=== PATIENT | female | born 1960 | race African-American/Black ===

== ENCOUNTER 2018-02-06 16:51 | Inpatient (IN) | payer MEDICARE, MEDICAID ==
[~2018-02-06] VITALS: Ht 172.7 cm; Wt 108.0 kg
[2018-02-06] MEDS ORDERED: SODIUM CHLORIDE 0.9% 1,000 ML IV ONE (17:23)
[2018-02-06] MEDS ORDERED: LORAZEPAM 2MG/ML CPJ IV ONE ×2 (17:30→18:30)
[2018-02-06] MEDS ORDERED: LEVETIRACETAM 500MG PREMIX 100 ML IV ONE (17:30)
[2018-02-06 18:24] LABS: BASOPHILS % 1.4 % (0.0-2.0); HEMATOCRIT. 38.3 % (36.0-48.0); HEMOGLOBIN. 12.6 g/dL (12.0-16.0); LYMPHOCYTES % 34.1 % (20.0-50.0); MEAN CORPUSCULAR VOLUME 79.1 fL (81.0-99.0); MEAN PLATELET VOLUME 9.3 fl (7.4-10.4); NEUTROPHILS % 54.5 % (40.0-76.0); PLATELET 164 x1000/uL (130-400); RED BLOOD CELL COUNT 4.85 mill/uL (4.2-5.4)
[2018-02-06 18:28] LABS: CHLORIDE 109 mEq/L (98-107); INR 1.1; PROTHROMBIN TIME 11.3 sec (9.1-11.1)
[2018-02-06 18:32] LABS: ETHANOL BLOOD < 10 mg/dL
[2018-02-06 18:36] LABS: CREATINE KINASE 113 IU/L (26-192)
[2018-02-06 18:39] LABS: PHENOBARBITAL < 2.1 ug/mL (15.0-40.0)
[2018-02-06 18:47] LABS: CARBAMAZEPINE < 0.5 ug/mL (4-12); VALPROIC ACID < 3.0 ug/mL (50-100)
[2018-02-06 19:25] LABS: CLARITY URINE CLEAR (CLEAR); COLOR URINE YELLOW (YELLOW); KETONES URINE NEGATIVE (NEGATIVE); LEUKOCYTE ESTERASE URINE NEGATIVE (NEGATIVE); NITRITE URINE NEGATIVE (NEGATIVE); OCCULT BLOOD URINE NEGATIVE (NEGATIVE); PH URINE 5.5 (4.5-8.0); PROTEIN URINE NEGATIVE (NEGATIVE); UROBILINOGEN URINE 0.2 E.U./dL (0.2-1.0)
[2018-02-06 19:53] LABS: *AMPHETAMINES SCREEN URINE NEGATIVE (NEGATIVE)
[2018-02-06 19:54] LABS: *BARBITURATES SCREEN URINE NEGATIVE (NEGATIVE); *BENZODIAZEPINES SCREEN URINE PRESUMTIVE POSITIVE (NEGATIVE); *COCAINE SCREEN URINE NEGATIVE (NEGATIVE); METHADONE URINE SCREEN NEGATIVE (NEGATIVE); OPIATES URINE SCREEN NEGATIVE (NEGATIVE); PHENCYCLIDINE URINE SCREEN NEGATIVE (NEGATIVE)
[2018-02-06 19:55] LABS: CANNABINOID URINE SCREEN NEGATIVE (NEGATIVE)
[2018-02-06 22:30] VITALS: BP 144/90
[2018-02-07] VITALS (8 sets, daily range): BP systolic 96–136; BP diastolic 66–86
[2018-02-07] MEDS ORDERED: ONDANSETRON HCL 4MG/2ML INJ IV PRN
[2018-02-07] MEDS ORDERED: IPRATROPIUM/ALBUTEROL 0.5-3(2.5)MG/3ML NEB HHN PRN
[2018-02-07] MEDS ORDERED: CLONIDINE 0.1MG TABLET PO PRN
[2018-02-07] MEDS ORDERED: LORAZEPAM 2MG/ML CPJ IV PRN
[2018-02-07] MEDS ORDERED: SIMV10TA6 PO (00:18)
[2018-02-07] MEDS ORDERED: BACL-141 PO (00:18)
[2018-02-07] MEDS ORDERED: GABA-290 PO (00:18)
[2018-02-07] MEDS ORDERED: MEMA10TA19 PO (00:18)
[2018-02-07] MEDS ORDERED: BUSP15TA3 PO (00:18)
[2018-02-07] MEDS ORDERED: LORA10TA7 PO (00:18)
[2018-02-07] MEDS ORDERED: ASPI-1159 PO (00:18)
[2018-02-07] MEDS ORDERED: BENA10TA10 PO (00:18)
[2018-02-07] MEDS ORDERED: KEPP500 PO (00:18)
[2018-02-07] MEDS ORDERED: NITR100C PO (00:20)
[2018-02-07 06:46] LABS: BASOPHILS % 1.1 % (0.0-2.0); EOSINOPHILS % 3.4 % (0.0-5.0); HEMATOCRIT. 39.4 % (36.0-48.0); HEMOGLOBIN. 12.9 g/dL (12.0-16.0); LYMPHOCYTES % 30.5 % (20.0-50.0); MEAN CORPUSCULAR HEMOGLOBIN 25.9 pg (28.0-32.0); MEAN CORPUSCULAR VOLUME 78.9 fL (81.0-99.0); MEAN PLATELET VOLUME 9.3 fl (7.4-10.4); MONOCYTES % 6.4 % (2.0-8.0); NEUTROPHILS % 58.6 % (40.0-76.0); PLATELET 172 x1000/uL (130-400); RED BLOOD CELL COUNT 4.99 mill/uL (4.2-5.4); RED CELL DISTRIBUTION WIDTH 15.8 % (11.6-14.6)
[2018-02-07 07:04] LABS: T4 FREE 0.88 ng/dL (0.76-1.46)
[2018-02-07] MEDS: HYDROCODONE/ACETAMINOPHEN 5/325MG TABLET PO PRN (07:26)
[2018-02-07] MEDS: LORATADINE 10MG TABLET PO SCH (08:40)
[2018-02-07] MEDS: GABAPENTIN 300MG CAPSULE PO SCH ×2 (08:40→17:22)
[2018-02-07] MEDS: BENAZEPRIL 10MG TABLET PO SCH (08:40)
[2018-02-07] MEDS: MEMANTINE HCL 10MG TABLET PO SCH (08:40)
[2018-02-07] MEDS: ASPIRIN 81MG TABLET PO SCH (08:41)
[2018-02-07] MEDS: BUSPIRONE HCL 10MG TABLET PO SCH ×2 (08:41→13:48)
[2018-02-07] MEDS ORDERED: MEDICATION NOT ON FORMULARY EA (Aspirin (Aspirin Low Dose) 1 TAB) PO SCH (09:00)
[2018-02-07] MEDS ORDERED: MEDICATION NOT ON FORMULARY EA (Gabapentin 1 TAB) PO SCH (09:00)
[2018-02-07] MEDS ORDERED: LEVETIRACETAM 500MG TABLET PO SCH ×2 (09:00→21:00)
[2018-02-07] MEDS ORDERED: MEDICATION NOT ON FORMULARY EA (Simvastatin 1 TAB) PO SCH (09:00)
[2018-02-07] MEDS ORDERED: BUSPIRONE HCL PO SCH (09:00)
[2018-02-07] MEDS: LORAZEPAM 2MG/ML CPJ IV PRN ×2 (12:37→22:40)
[2018-02-07 13:14] LABS: CHLORIDE 106 mEq/L (98-107)
[2018-02-07 13:46] LABS: VITAMIN B12 SERUM 667 pg/mL (211-911)
[2018-02-07] MEDS: PHENYTOIN SODIUM 100MG/2ML VIAL IV SCH ×2 (14:00→22:40)
[2018-02-07 14:37] LABS: BG BASE EXCESS 3.1 mmol/L (-2.0-2.0); BG CARBOXYHEMOGLOBIN 0.7 % (0.5-1.5); BG DEOXYHEMOGLOBIN 3.6 % (0.0-5.0); BG FRACTION INSPIRED OXYGEN 21; BG HCO3 ACT 28.1 mmol/L (22.0-26.0); BG METHEMOGLOBIN 0.3 % (0.0-1.5); BG OXYGEN SATURATION 96.4 % (92.0-98.5); BG OXYHEMOGLOBIN 95.4 % (94.0-97.0); BG PCO2 44.8 mmHg (35.0-45.0); BG PH 7.416 (7.350-7.450); BG PO2 83.3 mmHg (75.0-100.0); BG SAMPLE SITE LEFT BRACHIAL; BG TOTAL HEMOGLOBIN 13.2 g/dL (12.0-18.0); BG VENT MODE ROOM AIR
[2018-02-07] MEDS ORDERED: LAMOTRIGINE 25MG TABLET PO SCH (15:00)
[2018-02-07 15:17] LABS: HEMATOCRIT 38.7 % (36.0-48.0); HEMOGLOBIN 12.6 g/dL (12.0-16.0); MEAN CORPUSCULAR HEMOGLOBIN 25.7 pg (28.0-32.0); MEAN CORPUSCULAR VOLUME 78.8 fL (81.0-99.0); PLATELET 166 x1000/uL (130-400); RED BLOOD CELL COUNT 4.92 mill/uL (4.2-5.4)
[2018-02-07] MEDS: LAMOTRIGINE 25MG TABLET PO SCH (17:21)
[2018-02-07] MEDS: BUSPIRONE HCL 5MG TABLET PO SCH (17:21)
[2018-02-07] MEDS ORDERED: LEVETIRACETAM 500 MG in SODIUM CHLORIDE 0.9% 100 ML IV SCH (21:00)
[2018-02-07] MEDS: ACETAMINOPHEN 325MG TABLET PO PRN (21:19)
[2018-02-07] MEDS: LEVETIRACETAM 500MG in SODIUM CHLORIDE 0.9% 100ML IV SCH (21:20)
[2018-02-07] MEDS: BACLOFEN 10MG TABLET PO SCH (21:20)
[2018-02-07] MEDS: ATORVASTATIN CALCIUM 10MG TABLET PO SCH (21:20)
[2018-02-08] VITALS (31 sets, daily range): BP systolic 90–127; BP diastolic 58–81
[2018-02-08] MEDS: HYDROCODONE/ACETAMINOPHEN 5/325MG TABLET PO PRN ×2 (03:52→09:32)
[2018-02-08] MEDS: PHENYTOIN SODIUM 100MG/2ML VIAL IV SCH ×2 (05:25→14:09)
[2018-02-08 05:43] LABS: HEMOGLOBIN 12.5 g/dL (12.0-16.0); MEAN CORPUSCULAR HEMOGLOBIN 26.2 pg (28.0-32.0); MEAN CORPUSCULAR VOLUME 79.5 fL (81.0-99.0); PLATELET 161 x1000/uL (130-400); RED BLOOD CELL COUNT 4.78 mill/uL (4.2-5.4)
[2018-02-08] MEDS: ACETAMINOPHEN 325MG TABLET PO PRN (07:21)
[2018-02-08] MEDS: LORAZEPAM 2MG/ML CPJ IV PRN ×3 (07:27→19:44)
[2018-02-08] MEDS ORDERED: LIDOCAINE HCL 1% 20ML VIAL (Pyxis) INJ ONE (07:48)
[2018-02-08] MEDS: ASPIRIN 81MG TABLET PO SCH ×2 (09:26→14:10)
[2018-02-08] MEDS: GABAPENTIN 300MG CAPSULE PO SCH ×2 (09:26→16:46)
[2018-02-08] MEDS: LORATADINE 10MG TABLET PO SCH (09:26)
[2018-02-08] MEDS: MEMANTINE HCL 10MG TABLET PO SCH (09:26)
[2018-02-08] MEDS: LEVETIRACETAM 500MG in SODIUM CHLORIDE 0.9% 100ML IV SCH (09:27)
[2018-02-08] MEDS: BENAZEPRIL 10MG TABLET PO SCH ×2 (09:29→09:30)
[2018-02-08] MEDS: BUSPIRONE HCL 5MG TABLET PO SCH ×3 (10:54→16:50)
[2018-02-08] MEDS: LAMOTRIGINE 25MG TABLET PO SCH (10:54)
[2018-02-08] MEDS ORDERED: PHENYTOIN SODIUM 500 MG in SODIUM CHLORIDE 0.9% 50 ML IV SCH (11:45)
[2018-02-08 12:43] LABS: CHLORIDE 106 mEq/L (98-107)
[2018-02-08] MEDS: ENOXAPARIN 30MG/0.3ML SYR SUBCUT SCH (14:11)
[2018-02-08] MEDS: LEVETIRACETAM 250MG TABLET PO SCH (20:49)
[2018-02-08] MEDS: ATORVASTATIN CALCIUM 10MG TABLET PO SCH (20:49)
[2018-02-08] MEDS: BACLOFEN 10MG TABLET PO SCH (20:49)
[2018-02-08] MEDS: PHENYTOIN SODIUM EXTENDED 100MG CAPSULE PO SCH (23:16)
[2018-02-09] VITALS (12 sets, daily range): BP systolic 104–150; BP diastolic 63–90
[2018-02-09] MEDS: LORAZEPAM 2MG/ML CPJ IV PRN ×2 (03:11→07:48)
[2018-02-09] MEDS: PHENYTOIN SODIUM EXTENDED 100MG CAPSULE PO SCH ×3 (06:41→21:12)
[2018-02-09] MEDS: ENOXAPARIN 30MG/0.3ML SYR SUBCUT SCH ×2 (06:41→17:20)
[2018-02-09 07:07] LABS: HEMATOCRIT 35.7 % (36.0-48.0); HEMOGLOBIN 11.8 g/dL (12.0-16.0); MEAN CORPUSCULAR HEMOGLOBIN 25.8 pg (28.0-32.0); MEAN CORPUSCULAR VOLUME 78.2 fL (81.0-99.0); PLATELET 158 x1000/uL (130-400); RED BLOOD CELL COUNT 4.57 mill/uL (4.2-5.4); RED CELL DISTRIBUTION WIDTH 15.9 % (11.6-14.6)
[2018-02-09] MEDS: BENAZEPRIL 10MG TABLET PO SCH (09:00)
[2018-02-09] MEDS: BUSPIRONE HCL 5MG TABLET PO SCH ×3 (09:04→17:19)
[2018-02-09] MEDS: LORATADINE 10MG TABLET PO SCH (09:04)
[2018-02-09] MEDS: ASPIRIN 81MG TABLET PO SCH (09:04)
[2018-02-09] MEDS: MEMANTINE HCL 10MG TABLET PO SCH (09:04)
[2018-02-09] MEDS: LAMOTRIGINE 25MG TABLET PO SCH (09:04)
[2018-02-09] MEDS: LEVETIRACETAM 250MG TABLET PO SCH ×2 (09:05→20:39)
[2018-02-09] MEDS: GABAPENTIN 300MG CAPSULE PO SCH ×2 (09:07→17:20)
[2018-02-09] MEDS: AMLODIPINE 2.5MG TABLET PO SCH ×2 (12:30→20:47)
[2018-02-09] MEDS: ATORVASTATIN CALCIUM 10MG TABLET PO SCH (20:39)
[2018-02-09] MEDS: BACLOFEN 10MG TABLET PO SCH (20:40)
[2018-02-09] MEDS: HYDROCODONE/ACETAMINOPHEN 5/325MG TABLET PO PRN (21:13)
[2018-02-10] VITALS (19 sets, daily range): BP systolic 100–119; BP diastolic 65–77
[2018-02-10] MEDS: ACETAMINOPHEN 325MG TABLET PO PRN (01:38)
[2018-02-10] MEDS: PHENYTOIN SODIUM EXTENDED 100MG CAPSULE PO SCH ×3 (05:15→20:37)
[2018-02-10] MEDS: HYDROCODONE/ACETAMINOPHEN 5/325MG TABLET PO PRN ×2 (05:17→23:47)
[2018-02-10] MEDS: ENOXAPARIN 30MG/0.3ML SYR SUBCUT SCH ×2 (05:18→17:50)
[2018-02-10] MEDS ORDERED: DOCUSATE SODIUM 100MG CAPSULE PO SCH (09:45)
[2018-02-10] MEDS: LORATADINE 10MG TABLET PO SCH (09:52)
[2018-02-10] MEDS: LEVETIRACETAM 250MG TABLET PO SCH ×2 (09:52→20:36)
[2018-02-10] MEDS: GABAPENTIN 300MG CAPSULE PO SCH ×2 (09:52→17:44)
[2018-02-10] MEDS: BENAZEPRIL 10MG TABLET PO SCH (09:52)
[2018-02-10] MEDS: ASPIRIN 81MG TABLET PO SCH (09:52)
[2018-02-10] MEDS: AMLODIPINE 2.5MG TABLET PO SCH ×2 (09:53→20:37)
[2018-02-10] MEDS: MEMANTINE HCL 10MG TABLET PO SCH (09:53)
[2018-02-10] MEDS: LAMOTRIGINE 25MG TABLET PO SCH ×2 (10:03→17:44)
[2018-02-10] MEDS: BUSPIRONE HCL 5MG TABLET PO SCH ×3 (10:03→17:44)
[2018-02-10 11:08] LABS: HEMATOCRIT 36.7 % (36.0-48.0); HEMOGLOBIN 12.1 g/dL (12.0-16.0); MEAN CORPUSCULAR HEMOGLOBIN 26.2 pg (28.0-32.0); MEAN CORPUSCULAR VOLUME 79.3 fL (81.0-99.0); PLATELET 164 x1000/uL (130-400); RED BLOOD CELL COUNT 4.63 mill/uL (4.2-5.4); RED CELL DISTRIBUTION WIDTH 15.8 % (11.6-14.6)
[2018-02-10] MEDS ORDERED: LACTULOSE 20G/30ML UDC PO NR (17:00)
[2018-02-10] MEDS: DOCUSATE SODIUM 100MG CAPSULE PO SCH (17:44)
[2018-02-10] MEDS: BACLOFEN 10MG TABLET PO SCH (20:36)
[2018-02-10] MEDS: ATORVASTATIN CALCIUM 10MG TABLET PO SCH (20:36)
[2018-02-11] VITALS (17 sets, daily range): BP systolic 94–130; BP diastolic 59–87
[2018-02-11] MEDS: ENOXAPARIN 30MG/0.3ML SYR SUBCUT SCH ×2 (06:05→18:36)
[2018-02-11] MEDS: PHENYTOIN SODIUM EXTENDED 100MG CAPSULE PO SCH ×3 (06:05→20:52)
[2018-02-11] MEDS: HYDROCODONE/ACETAMINOPHEN 5/325MG TABLET PO PRN (06:11)
[2018-02-11] MEDS: DOCUSATE SODIUM 100MG CAPSULE PO SCH ×2 (08:23→16:13)
[2018-02-11] MEDS: GABAPENTIN 300MG CAPSULE PO SCH ×2 (08:23→16:13)
[2018-02-11] MEDS: BENAZEPRIL 10MG TABLET PO SCH (08:23)
[2018-02-11] MEDS: ASPIRIN 81MG TABLET PO SCH (08:23)
[2018-02-11] MEDS: BUSPIRONE HCL 5MG TABLET PO SCH ×3 (08:23→16:19)
[2018-02-11] MEDS: LAMOTRIGINE 25MG TABLET PO SCH ×2 (08:24→16:19)
[2018-02-11] MEDS: LORATADINE 10MG TABLET PO SCH (08:33)
[2018-02-11] MEDS: LEVETIRACETAM 250MG TABLET PO SCH ×2 (08:33→20:52)
[2018-02-11] MEDS: MEMANTINE HCL 10MG TABLET PO SCH (08:33)
[2018-02-11] MEDS: AMLODIPINE 2.5MG TABLET PO SCH ×2 (08:34→20:53)
[2018-02-11] MEDS: DIPHENHYDRAMINE 50MG/ML VIAL IV PRN ×3 (08:35→21:42)
[2018-02-11 13:23] LABS: HEMATOCRIT 36.4 % (36.0-48.0); PLATELET 159 x1000/uL (130-400); RED BLOOD CELL COUNT 4.61 mill/uL (4.2-5.4); RED CELL DISTRIBUTION WIDTH 15.6 % (11.6-14.6)
[2018-02-11] MEDS: LORAZEPAM 2MG/ML CPJ IV PRN (13:38)
[2018-02-11] MEDS ORDERED: LACTULOSE 20G/30ML UDC PO NR (14:00)
[2018-02-11] MEDS ORDERED: LORAZEPAM 2MG/ML CPJ IV PRN (16:00)
[2018-02-11] MEDS ORDERED: HYDROCODONE/ACETAMINOPHEN 5/325MG TABLET PO PRN (18:00)
[2018-02-11] MEDS: BACLOFEN 10MG TABLET PO SCH (20:51)
[2018-02-11] MEDS: ATORVASTATIN CALCIUM 10MG TABLET PO SCH (20:52)
[2018-02-12] VITALS (8 sets, daily range): BP systolic 82–127; BP diastolic 53–96
[2018-02-12] MEDS: ENOXAPARIN 30MG/0.3ML SYR SUBCUT SCH ×2 (05:44→17:27)
[2018-02-12] MEDS: PHENYTOIN SODIUM EXTENDED 100MG CAPSULE PO SCH ×3 (05:44→21:15)
[2018-02-12] MEDS: ACETAMINOPHEN 325MG TABLET PO PRN (05:54)
[2018-02-12] MEDS: DIPHENHYDRAMINE 50MG/ML VIAL IV PRN ×3 (09:28→23:14)
[2018-02-12] MEDS: LEVETIRACETAM 250MG TABLET PO SCH ×2 (09:29→21:14)
[2018-02-12] MEDS: MEMANTINE HCL 10MG TABLET PO SCH (09:29)
[2018-02-12] MEDS: BENAZEPRIL 10MG TABLET PO SCH (09:29)
[2018-02-12] MEDS: GABAPENTIN 300MG CAPSULE PO SCH ×2 (09:29→16:37)
[2018-02-12] MEDS: LORATADINE 10MG TABLET PO SCH (09:29)
[2018-02-12] MEDS: LAMOTRIGINE 25MG TABLET PO SCH ×2 (09:29→16:37)
[2018-02-12] MEDS: DOCUSATE SODIUM 100MG CAPSULE PO SCH ×2 (09:30→16:37)
[2018-02-12] MEDS: BUSPIRONE HCL 5MG TABLET PO SCH ×3 (09:30→16:37)
[2018-02-12] MEDS: ASPIRIN 81MG TABLET PO SCH (09:30)
[2018-02-12] MEDS: AMLODIPINE 2.5MG TABLET PO SCH ×2 (09:30→21:15)
[2018-02-12 10:48] LABS: HEMATOCRIT 37.6 % (36.0-48.0); HEMOGLOBIN 12.3 g/dL (12.0-16.0); MEAN CORPUSCULAR VOLUME 79.8 fL (81.0-99.0); PLATELET 171 x1000/uL (130-400); RED BLOOD CELL COUNT 4.72 mill/uL (4.2-5.4); RED CELL DISTRIBUTION WIDTH 15.7 % (11.6-14.6)
[2018-02-12] MEDS ORDERED: BUSPIRONE HCL 5MG TABLET PO SCH (18:30)
[2018-02-12] MEDS: ATORVASTATIN CALCIUM 10MG TABLET PO SCH (21:14)
[2018-02-12] MEDS: BACLOFEN 10MG TABLET PO SCH (21:14)
[2018-02-12] MEDS: QUETIAPINE FUMARATE 25MG TABLET PO SCH (21:15)
[2018-02-13] VITALS (10 sets, daily range): BP systolic 97–127; BP diastolic 65–83
[2018-02-13] MEDS: DIPHENHYDRAMINE 50MG/ML VIAL IV PRN ×3 (06:16→18:41)
[2018-02-13] MEDS: PHENYTOIN SODIUM EXTENDED 100MG CAPSULE PO SCH ×3 (06:16→22:00)
[2018-02-13] MEDS: ENOXAPARIN 30MG/0.3ML SYR SUBCUT SCH ×2 (06:16→18:22)
[2018-02-13 07:34] LABS: CHLORIDE 105 mEq/L (98-107)
[2018-02-13 07:40] LABS: HEMATOCRIT 36.8 % (36.0-48.0); HEMOGLOBIN 12.1 g/dL (12.0-16.0); MEAN CORPUSCULAR HEMOGLOBIN 26.2 pg (28.0-32.0); MEAN CORPUSCULAR VOLUME 79.5 fL (81.0-99.0); PLATELET 171 x1000/uL (130-400); RED BLOOD CELL COUNT 4.63 mill/uL (4.2-5.4); RED CELL DISTRIBUTION WIDTH 15.4 % (11.6-14.6)
[2018-02-13] MEDS: GABAPENTIN 300MG CAPSULE PO SCH ×2 (08:55→18:22)
[2018-02-13] MEDS: LORATADINE 10MG TABLET PO SCH (08:55)
[2018-02-13] MEDS: ASPIRIN 81MG TABLET PO SCH (08:55)
[2018-02-13] MEDS: AMLODIPINE 2.5MG TABLET PO SCH ×2 (08:55→21:00)
[2018-02-13] MEDS: MEMANTINE HCL 10MG TABLET PO SCH (08:55)
[2018-02-13] MEDS: BENAZEPRIL 10MG TABLET PO SCH (08:56)
[2018-02-13] MEDS: QUETIAPINE FUMARATE 25MG TABLET PO SCH ×2 (08:56→22:54)
[2018-02-13] MEDS: DOCUSATE SODIUM 100MG CAPSULE PO SCH ×2 (08:56→18:23)
[2018-02-13] MEDS: LEVETIRACETAM 250MG TABLET PO SCH ×2 (08:57→22:51)
[2018-02-13] MEDS: LAMOTRIGINE 25MG TABLET PO SCH ×2 (08:57→18:22)
[2018-02-13] MEDS: BACLOFEN 10MG TABLET PO SCH (21:00)
[2018-02-13] MEDS: ATORVASTATIN CALCIUM 10MG TABLET PO SCH ×2 (21:00→22:54)
[2018-02-14] VITALS (8 sets, daily range): BP systolic 93–98; BP diastolic 33–75
[2018-02-14] MEDS: DIPHENHYDRAMINE 50MG/ML VIAL IV PRN ×2 (00:18→13:03)
[2018-02-14] MEDS: LAMOTRIGINE 25MG TABLET PO SCH ×2 (00:21→17:30)
[2018-02-14] MEDS: ENOXAPARIN 30MG/0.3ML SYR SUBCUT SCH ×2 (06:35→17:32)
[2018-02-14] MEDS: PHENYTOIN SODIUM EXTENDED 100MG CAPSULE PO SCH ×2 (06:36→14:10)
[2018-02-14] MEDS: MEMANTINE HCL 10MG TABLET PO SCH (09:54)
[2018-02-14] MEDS: GABAPENTIN 300MG CAPSULE PO SCH ×2 (09:55→17:30)
[2018-02-14] MEDS: DOCUSATE SODIUM 100MG CAPSULE PO SCH ×2 (09:55→17:30)
[2018-02-14] MEDS: ASPIRIN 81MG TABLET PO SCH (09:55)
[2018-02-14] MEDS: BENAZEPRIL 10MG TABLET PO SCH (09:58)
[2018-02-14] MEDS: LORATADINE 10MG TABLET PO SCH (09:58)
[2018-02-14] MEDS: AMLODIPINE 2.5MG TABLET PO SCH (09:59)
[2018-02-14] MEDS: QUETIAPINE FUMARATE 25MG TABLET PO SCH (09:59)
[2018-02-14] MEDS: LEVETIRACETAM 250MG TABLET PO SCH (09:59)
== END 2018-02-14 22:44 | DRG 101 ==
LOC: ER 16:51 → 8WST 21:00 → ENRESERV 21:26 → 5EST 02-07 15:20 → MICUSO 02-07 23:00 → 5EST 02-08 21:30
PROVIDERS: ADMIT Internal Medicine; ATTEND Internal Medicine
PROC: 05HY33Z Insertion of Infusion Device into Upper Vein, Percutaneous Approach (ICD-10-PCS; principal; 2018-02-08)
PROC: B54MZZA Ultrasonography of Right Upper Extremity Veins, Guidance (ICD-10-PCS; 2018-02-08)
DX: G40.411 Other generalized epilepsy and epileptic syndromes, intractable, with status epilepticus (principal); G93.40 Encephalopathy, unspecified; E11.65 Type 2 diabetes mellitus with hyperglycemia; I10 Essential (primary) hypertension; K59.00 Constipation, unspecified; G93.89 Other specified disorders of brain; E66.3 Overweight; Z87.820 Personal history of traumatic brain injury; Z88.0 Allergy status to penicillin; Z68.35 Body mass index [BMI] 35.0-35.9, adult; I69.398 Other sequelae of cerebral infarction
CPT/HCPCS: 36415; 36569; 36600; 70551; 71045; 74018; 76937; 80048; 80061; 80156; 80165; 80184; 80185; 80305; 82140; 82375; 82542; 82550; 82607; 82805; 82962; 83036; 83605; 83735; 84439; 84443; 84484; 85027; 93005; 93306; 93880; 96365; 96375; 97163; 97164; 99285; A6261; C1725; G0482; J1165; J1200; J1650; J1953; J2060; J3490; J7030; J7040; J7050; J7620

== ENCOUNTER 2018-07-16 10:03 | Inpatient (IN) | payer OTHER, MEDICAID ==
[~2018-07-16] VITALS: Ht 170.2 cm; Wt 112.0 kg
[~2018-07-16 10:03] MED LIST: ASPI-1159 PO; BACL-141 PO; BENA10TA10 PO; BUSP15TA3 PO; GABA-290 PO; KEPP500 PO; LORA10TA7 PO; MEMA10TA19 PO; NITR100C PO; SIMV10TA6 PO
[2018-07-16] MEDS ORDERED: LORAZEPAM 2MG/ML CPJ IV ONE ×2 (10:30→11:00)
[2018-07-16] MEDS ORDERED: LEVETIRACETAM 500MG PREMIX 100 ML IV ONE (10:30)
[2018-07-16] MEDS ORDERED: SODIUM CHLORIDE 0.9% 1,000 ML IV ONE (10:30)
[2018-07-16 10:51] LABS: BASOPHILS % 1.1 % (0.0-2.0); EOSINOPHILS % 4.3 % (0.0-5.0); HEMATOCRIT. 38.9 % (36.0-48.0); HEMOGLOBIN. 12.8 g/dL (12.0-16.0); LYMPHOCYTES % 42.6 % (20.0-50.0); MEAN CORPUSCULAR HEMOGLOBIN 26.6 pg (28.0-32.0); MEAN CORPUSCULAR VOLUME 80.6 fL (81.0-99.0); MEAN PLATELET VOLUME 8.5 fl (7.4-10.4); MONOCYTES % 5.7 % (2.0-8.0); NEUTROPHILS % 46.3 % (40.0-76.0); PLATELET 230 x1000/uL (130-400); RED BLOOD CELL COUNT 4.83 mill/uL (4.2-5.4)
[2018-07-16 10:57] LABS: CHLORIDE 106 mEq/L (98-107)
[2018-07-16] MEDS ORDERED: IBUPROFEN 800MG TABLET PO ONE (11:00)
[2018-07-16] MEDS ORDERED: ONDANSETRON HCL 4MG/2ML INJ IV ONE (11:00)
[2018-07-16] MEDS ORDERED: DIPHENHYDRAMINE 50MG/ML VIAL IV ONE (12:30)
[2018-07-16] MEDS ORDERED: IPRATROPIUM/ALBUTEROL 0.5-3(2.5)MG/3ML NEB INH PRN (15:45)
[2018-07-16] MEDS ORDERED: MAGNESIUM/ALUMINUM HYDROXIDE/SIMETHICONE 30ML UDC PO PRN (15:45)
[2018-07-16] MEDS ORDERED: DOCUSATE SODIUM 100MG CAPSULE PO PRN (15:45)
[2018-07-16] MEDS ORDERED: ACETAMINOPHEN 650MG SUPP PR PRN (15:45)
[2018-07-16] MEDS ORDERED: GUAIFENESIN 200MG/10ML SUGAR FREE UDC PO PRN (15:45)
[2018-07-16] MEDS ORDERED: CLONIDINE 0.1MG TABLET PO PRN (15:45)
[2018-07-16] MEDS ORDERED: ACETAMINOPHEN 325MG TABLET PO PRN (15:45)
[2018-07-16] MEDS ORDERED: HYDROCODONE/ACETAMINOPHEN 5/325MG TABLET PO PRN (15:45)
[2018-07-16] MEDS ORDERED: ONDANSETRON HCL 4MG/2ML INJ IV PRN (15:45)
[2018-07-16] MEDS: DIPHENHYDRAMINE 50MG/ML VIAL IV PRN ×2 (16:58→20:37)
[2018-07-16 19:00] VITALS: BP 122/74
[2018-07-16] MEDS: ENOXAPARIN 40MG/0.4ML SYR SUBCUT SCH (20:39)
[2018-07-16] MEDS: LEVETIRACETAM 500 MG in SODIUM CHLORIDE 0.9% 100 ML IV SCH (20:44)
[2018-07-16] MEDS: DEXT 5%/0.45% NACL 1000ML 1,000 ML IV SCH (20:44)
[2018-07-16] MEDS ORDERED: NA PHOS,M-B/NA PHOS,DI-BA ENEMA 118ML PR PRN (21:00)
[2018-07-16 22:09] LABS: CREATINE KINASE 70 IU/L (26-192)
[2018-07-16 22:11] LABS: CREATINE KINASE MB FRACTION < 1.0 ng/mL (0.5-3.6)
[2018-07-17] VITALS (12 sets, daily range): BP systolic 86–124; BP diastolic 58–82
[2018-07-17] MEDS: LORAZEPAM 2MG/ML CPJ IV PRN (00:46)
[2018-07-17] MEDS: DIPHENHYDRAMINE 50MG/ML VIAL IV PRN ×3 (00:52→15:34)
[2018-07-17 05:40] LABS: BASOPHILS % 0.5 % (0.0-2.0); LYMPHOCYTES % 43.4 % (20.0-50.0); MEAN CORPUSCULAR HEMOGLOBIN 26.9 pg (28.0-32.0); MEAN CORPUSCULAR VOLUME 80.7 fL (81.0-99.0); MEAN PLATELET VOLUME 8.4 fl (7.4-10.4); MONOCYTES % 5.5 % (2.0-8.0); NEUTROPHILS % 46.6 % (40.0-76.0); PLATELET 210 x1000/uL (130-400); RED BLOOD CELL COUNT 4.46 mill/uL (4.2-5.4); RED CELL DISTRIBUTION WIDTH 14.9 % (11.6-14.6)
[2018-07-17 05:43] LABS: CHLORIDE 108 mEq/L (98-107)
[2018-07-17 05:51] LABS: HDL CHOLESTEROL 45 mg/dL (40-59)
[2018-07-17 05:53] LABS: LDL CHOLESTEROL 153 mg/dL (5-100)
[2018-07-17 05:54] LABS: CREATINE KINASE 66 IU/L (26-192); CREATINE KINASE MB FRACTION < 1.0 ng/mL (0.5-3.6); T4 FREE 0.74 ng/dL (0.76-1.46)
[2018-07-17] MEDS: PANTOPRAZOLE 40MG DR TABLET PO SCH (08:54)
[2018-07-17] MEDS: LEVETIRACETAM 500 MG in SODIUM CHLORIDE 0.9% 100 ML IV SCH (08:54)
[2018-07-17] MEDS: DEXT 5%/0.45% NACL 1000ML 1,000 ML IV SCH (13:01)
[2018-07-17] MEDS ORDERED: LAMO25TA15 MT (13:31)
[2018-07-17] MEDS ORDERED: ATOR10TA69 MT (13:31)
[2018-07-17] MEDS ORDERED: GABA-531 MT (13:31)
[2018-07-17] MEDS ORDERED: LEVE750T52 MT (13:31)
[2018-07-17] MEDS ORDERED: PHEN100C4 MT (13:31)
[2018-07-17] MEDS ORDERED: AMLO2.5T45 MT (13:31)
[2018-07-17] MEDS ORDERED: BISACODYL 5MG TABLET PO PRN (14:30)
[2018-07-17] MEDS: PHENYTOIN SODIUM EXTENDED 100MG CAPSULE PO SCH ×2 (15:22→22:28)
[2018-07-17] MEDS: BACLOFEN 10MG TABLET PO SCH ×2 (15:22→22:29)
[2018-07-17] MEDS: DOCUSATE SODIUM SUGAR FREE 100MG/10ML UDC NG SCH (15:23)
[2018-07-17] MEDS ORDERED: LEVETIRACETAM 500 MG in SODIUM CHLORIDE 0.9% 100 ML IV SCH (21:00)
[2018-07-17] MEDS ORDERED: ATORVASTATIN CALCIUM 40MG TABLET PO SCH (21:00)
[2018-07-17] MEDS: ENOXAPARIN 40MG/0.4ML SYR SUBCUT SCH (22:28)
[2018-07-17] MEDS: LAMOTRIGINE 100MG TABLET PO SCH (22:28)
[2018-07-17] MEDS: LEVETIRACETAM 500MG TABLET PO SCH (22:29)
[2018-07-17] MEDS: BUSPIRONE HCL 10MG TABLET PO SCH (22:29)
[2018-07-18] VITALS (10 sets, daily range): BP systolic 117–130; BP diastolic 61–99
[2018-07-18] MEDS: LORAZEPAM 2MG/ML CPJ IV PRN (02:50)
[2018-07-18] MEDS: BACLOFEN 10MG TABLET PO SCH ×2 (06:30→14:31)
[2018-07-18] MEDS: PHENYTOIN SODIUM EXTENDED 100MG CAPSULE PO SCH ×2 (06:30→14:31)
[2018-07-18] MEDS: PANTOPRAZOLE 40MG DR TABLET PO SCH (06:32)
[2018-07-18] MEDS: DEXT 5%/0.45% NACL 1000ML 1,000 ML IV SCH (06:33)
[2018-07-18] MEDS: LEVETIRACETAM 500MG TABLET PO SCH (08:50)
[2018-07-18] MEDS: BUSPIRONE HCL 10MG TABLET PO SCH (08:50)
[2018-07-18] MEDS: LAMOTRIGINE 100MG TABLET PO SCH (08:51)
[2018-07-18] MEDS: DOCUSATE SODIUM SUGAR FREE 100MG/10ML UDC NG SCH (08:51)
[2018-07-18] MEDS: DIPHENHYDRAMINE 50MG/ML VIAL IV PRN ×2 (08:52→15:25)
[2018-07-18] MEDS ORDERED: ENOXAPARIN 30MG/0.3ML SYR SUBCUT SCH (09:00)
[2018-07-18 12:13] LABS: INR 1.1
[2018-07-18 16:22] LABS: CLARITY URINE CLEAR (CLEAR); COLOR URINE YELLOW (YELLOW); KETONES URINE NEGATIVE (NEGATIVE); LEUKOCYTE ESTERASE URINE NEGATIVE (NEGATIVE); NITRITE URINE NEGATIVE (NEGATIVE); OCCULT BLOOD URINE NEGATIVE (NEGATIVE); PH URINE 6.5 (4.5-8.0); PROTEIN URINE NEGATIVE (NEGATIVE); SPECIFIC GRAVITY URINE 1.008 (1.005-1.030); UROBILINOGEN URINE 0.2 E.U./dL (0.2-1.0)
== END 2018-07-18 18:00 | disposition home or self-care (01) | DRG 101 ==
LOC: ER 10:03 → 5EST 14:27 → EDBEDREQSVC 14:43 → EDBEDREQ 14:43 → ENRESERV 16:36
PROVIDERS: ADMIT Internal Medicine; ATTEND Internal Medicine
PROC: 4A00X4Z Measurement of Central Nervous Electrical Activity, External Approach (ICD-10-PCS; principal; 2018-07-18)
DX: G40.411 Other generalized epilepsy and epileptic syndromes, intractable, with status epilepticus (principal); E66.9 Obesity, unspecified; I10 Essential (primary) hypertension; R73.9 Hyperglycemia, unspecified; E78.5 Hyperlipidemia, unspecified; F32.9 Major depressive disorder, single episode, unspecified; Z88.0 Allergy status to penicillin; Z79.82 Long term (current) use of aspirin; Z79.899 Other long term (current) drug therapy; Z87.891 Personal history of nicotine dependence; Z86.73 Personal history of transient ischemic attack (TIA), and cerebral infarction without residual deficits; Z68.38 Body mass index [BMI] 38.0-38.9, adult
CPT/HCPCS: 36415; 71045; 80061; 82542; 82550; 82553; 82962; 84439; 84443; 84484; 93970; 96365; 96375; 97110; 97162; 97530; 99285; J1200; J1650; J1953; J2060; J2405; J7030; J7050

== ENCOUNTER 2018-07-19 21:45 | Inpatient (IN) | payer OTHER, MEDICAID ==
[~2018-07-19] VITALS: Ht 172.7 cm; Wt 104.4 kg
[~2018-07-19 21:45] MED LIST changes: +AMLO2.5T45 MT; -BUSP15TA3 PO; -GABA-290 PO; +GABA-531 MT; -KEPP500 PO; -NITR100C PO; -SIMV10TA6 PO
[2018-07-19] MEDS ORDERED: LORAZEPAM 2MG/ML CPJ ONE (21:48)
[2018-07-19] MEDS ORDERED: LORAZEPAM 2MG/ML CPJ IV ONE (22:30)
[2018-07-19] MEDS ORDERED: DIPHENHYDRAMINE 50MG/ML VIAL IV ONE (22:30)
[2018-07-19] MEDS ORDERED: METHYLPREDNISOLONE SOD SUCC 125 MG/2 ML VIAL IV ONE (22:30)
[2018-07-19] MEDS ORDERED: FAMOTIDINE 20MG/2ML VIAL IV ONE (22:30)
[2018-07-19] MEDS ORDERED: LEVETIRACETAM 1000MG/100ML 100 ML IV ONE (22:30)
[2018-07-19 23:05] LABS: BASOPHILS % 0.3 % (0.0-2.0); EOSINOPHILS % 4.1 % (0.0-5.0); HEMATOCRIT. 37.7 % (36.0-48.0); HEMOGLOBIN. 12.1 g/dL (12.0-16.0); LYMPHOCYTES % 37.1 % (20.0-50.0); MEAN CORPUSCULAR HEMOGLOBIN 25.9 pg (28.0-32.0); MEAN CORPUSCULAR VOLUME 80.6 fL (81.0-99.0); MEAN PLATELET VOLUME 8.1 fl (7.4-10.4); NEUTROPHILS % 53.5 % (40.0-76.0); PLATELET 227 x1000/uL (130-400); RED BLOOD CELL COUNT 4.67 mill/uL (4.2-5.4); RED CELL DISTRIBUTION WIDTH 15.1 % (11.6-14.6)
[2018-07-19 23:10] LABS: CLARITY URINE CLEAR (CLEAR); COLOR URINE YELLOW (YELLOW); KETONES URINE NEGATIVE (NEGATIVE); LEUKOCYTE ESTERASE URINE TRACE (NEGATIVE); NITRITE URINE NEGATIVE (NEGATIVE); OCCULT BLOOD URINE NEGATIVE (NEGATIVE); PH URINE 5.5 (4.5-8.0); PROTEIN URINE NEGATIVE (NEGATIVE); SPECIFIC GRAVITY URINE 1.007 (1.005-1.030); UROBILINOGEN URINE 0.2 E.U./dL (0.2-1.0)
[2018-07-19 23:10] LABS: CHLORIDE 106 mEq/L (98-107); PROTHROMBIN TIME 10.8 sec (9.6-11.0)
[2018-07-19 23:13] LABS: ETHANOL BLOOD < 10 mg/dL
[2018-07-19] MEDS ORDERED: POTASSIUM CHLORIDE 20MEQ TABLET SR PO NR (23:15)
[2018-07-19 23:20] LABS: *AMPHETAMINES SCREEN URINE NEGATIVE (NEGATIVE); *BARBITURATES SCREEN URINE NEGATIVE (NEGATIVE); *BENZODIAZEPINES SCREEN URINE NEGATIVE (NEGATIVE); *COCAINE SCREEN URINE NEGATIVE (NEGATIVE)
[2018-07-19 23:21] LABS: CANNABINOID URINE SCREEN NEGATIVE (NEGATIVE); METHADONE URINE SCREEN NEGATIVE (NEGATIVE); OPIATES URINE SCREEN NEGATIVE (NEGATIVE); PHENCYCLIDINE URINE SCREEN NEGATIVE (NEGATIVE)
[2018-07-20] VITALS (18 sets, daily range): BP systolic 119–148; BP diastolic 69–88
[2018-07-20] MEDS ORDERED: LORAZEPAM 2MG/ML CPJ IV PRN (02:00)
[2018-07-20] MEDS: DEXT 5%/0.45% NACL 1000ML 1,000 ML IV SCH ×2 (03:00→17:00)
[2018-07-20] MEDS: DIPHENHYDRAMINE 50MG/ML VIAL IV PRN ×3 (03:11→21:51)
[2018-07-20] MEDS: METHYLPREDNISOLONE SOD SUCC 40 MG/ML VIAL IV SCH ×3 (05:11→21:43)
[2018-07-20] MEDS ORDERED: TRAMADOL 50MG TABLET PO PRN (07:00)
[2018-07-20] MEDS ORDERED: LEVETIRACETAM 500 MG in SODIUM CHLORIDE 0.9% 100 ML IV SCH (09:00)
[2018-07-20 09:03] LABS: BASOPHILS % 0.2 % (0.0-2.0); EOSINOPHILS % 0.3 % (0.0-5.0); HEMATOCRIT. 35.1 % (36.0-48.0); HEMOGLOBIN. 11.5 g/dL (12.0-16.0); LYMPHOCYTES % 8.7 % (20.0-50.0); MEAN CORPUSCULAR HEMOGLOBIN 26.4 pg (28.0-32.0); MEAN CORPUSCULAR VOLUME 80.7 fL (81.0-99.0); MEAN PLATELET VOLUME 8.3 fl (7.4-10.4); MONOCYTES % 1.2 % (2.0-8.0); NEUTROPHILS % 89.6 % (40.0-76.0); PLATELET 207 x1000/uL (130-400); RED BLOOD CELL COUNT 4.35 mill/uL (4.2-5.4); RED CELL DISTRIBUTION WIDTH 14.8 % (11.6-14.6)
[2018-07-20 09:17] LABS: CHLORIDE 111 mEq/L (98-107)
[2018-07-20] MEDS: FAMOTIDINE 20MG/2ML VIAL IV SCH ×2 (09:29→21:42)
[2018-07-20] MEDS: BACLOFEN 20MG TABLET PO SCH ×2 (15:17→21:43)
[2018-07-20] MEDS: LEVOFLOXACIN 500MG TABLET PO SCH (17:49)
[2018-07-20] MEDS: LEVETIRACETAM 500MG TABLET PO SCH (21:43)
[2018-07-20] MEDS: PHENYTOIN SODIUM EXTENDED 100MG CAPSULE PO SCH (21:43)
[2018-07-21] VITALS (9 sets, daily range): BP systolic 124–137; BP diastolic 67–76
[2018-07-21] MEDS: METHYLPREDNISOLONE SOD SUCC 40 MG/ML VIAL IV SCH (05:31)
[2018-07-21] MEDS: PHENYTOIN SODIUM EXTENDED 100MG CAPSULE PO SCH ×2 (05:31→14:47)
[2018-07-21] MEDS: BACLOFEN 20MG TABLET PO SCH ×2 (05:31→14:47)
[2018-07-21] MEDS: DIPHENHYDRAMINE 50MG/ML VIAL IV PRN (05:31)
[2018-07-21] MEDS: DEXT 5%/0.45% NACL 1000ML 1,000 ML IV SCH (05:32)
[2018-07-21 07:35] LABS: HEMATOCRIT 34.5 % (36.0-48.0); HEMOGLOBIN 11.3 g/dL (12.0-16.0); MEAN CORPUSCULAR HEMOGLOBIN 26.3 pg (28.0-32.0); MEAN CORPUSCULAR VOLUME 80.1 fL (81.0-99.0); PLATELET 205 x1000/uL (130-400); RED BLOOD CELL COUNT 4.31 mill/uL (4.2-5.4); RED CELL DISTRIBUTION WIDTH 14.9 % (11.6-14.6)
[2018-07-21 07:39] LABS: CHLORIDE 110 mEq/L (98-107)
[2018-07-21] MEDS: FAMOTIDINE 20MG/2ML VIAL IV SCH (10:16)
[2018-07-21] MEDS: LEVETIRACETAM 500MG TABLET PO SCH (10:16)
[2018-07-21] MEDS: LEVOFLOXACIN 500MG TABLET PO SCH (11:00)
[2018-07-21] MEDS ORDERED: METHYLPREDNISOLONE SOD SUCC 40 MG/ML VIAL IV SCH (18:00)
== END 2018-07-21 19:46 | disposition home or self-care (01) | DRG 916 ==
LOC: EDBEDREQSVC 23:25 → EDBEDREQTM 23:25 → EDBEDREQ 23:25 → ER 23:46 → ENRESERV 23:47 → 5EST 23:50
PROVIDERS: ADMIT Internal Medicine; ATTEND Internal Medicine
PROC: 30233K1 Transfusion of Nonautologous Frozen Plasma into Peripheral Vein, Percutaneous Approach (ICD-10-PCS; principal; 2018-07-20)
DX: T78.3XXA Angioneurotic edema, initial encounter (principal); N39.0 Urinary tract infection, site not specified; G40.901 Epilepsy, unspecified, not intractable, with status epilepticus; I10 Essential (primary) hypertension; E87.6 Hypokalemia; E66.9 Obesity, unspecified; R73.9 Hyperglycemia, unspecified; D64.9 Anemia, unspecified; T38.0X5A Adverse effect of glucocorticoids and synthetic analogues, initial encounter; R13.10 Dysphagia, unspecified; I25.2 Old myocardial infarction; Z68.35 Body mass index [BMI] 35.0-35.9, adult; I69.398 Other sequelae of cerebral infarction; Y92.89 Other specified places as the place of occurrence of the external cause; Z79.899 Other long term (current) drug therapy; Z79.82 Long term (current) use of aspirin; D72.829 Elevated white blood cell count, unspecified
CPT/HCPCS: 36415; 71045; 80048; 80305; 80320; 82962; 85027; 86850; 86900; 86927; 96365; 96375; 99291; J1200; J1953; J2060; J2920; J2930; J3490; J7050; P9017; G0480

== ENCOUNTER 2018-10-22 09:12 | Emergency (ER) | payer MEDICARE, MEDICAID ==
[~2018-10-22] VITALS: Ht 172.7 cm; Wt 90.0 kg
[~2018-10-22 09:12] MED LIST changes: -ASPI-1159 PO; +ASPI-1393 PO; +B50 GT
[2018-10-22] MEDS ORDERED: LORAZEPAM 2MG/ML CPJ IV ONE (09:45)
[2018-10-22 10:26] LABS: BASOPHILS % 1.7 % (0.0-2.0); EOSINOPHILS % 9.3 % (0.0-5.0); HEMATOCRIT. 37.4 % (36.0-48.0); HEMOGLOBIN. 12.3 g/dL (12.0-16.0); LYMPHOCYTES % 31.6 % (20.0-50.0); MEAN CORPUSCULAR HEMOGLOBIN 26.4 pg (28.0-32.0); MEAN CORPUSCULAR VOLUME 80.3 fL (81.0-99.0); MEAN PLATELET VOLUME 8.5 fl (7.4-10.4); MONOCYTES % 5.7 % (2.0-8.0); NEUTROPHILS % 51.7 % (40.0-76.0); PLATELET 186 x1000/uL (130-400); RED BLOOD CELL COUNT 4.66 mill/uL (4.2-5.4); RED CELL DISTRIBUTION WIDTH 16.3 % (11.6-14.6)
[2018-10-22 10:33] LABS: CHLORIDE 107 mEq/L (98-107)
[2018-10-22 10:37] LABS: ETHANOL BLOOD < 10 mg/dL
[2018-10-22] MEDS ORDERED: LEVETIRACETAM 500MG PREMIX 100 ML IV ONE (12:30)
[2018-10-22 12:41] LABS: CLARITY URINE CLEAR (CLEAR); COLOR URINE YELLOW (YELLOW); KETONES URINE NEGATIVE (NEGATIVE); LEUKOCYTE ESTERASE URINE NEGATIVE (NEGATIVE); NITRITE URINE NEGATIVE (NEGATIVE); OCCULT BLOOD URINE NEGATIVE (NEGATIVE); PROTEIN URINE NEGATIVE (NEGATIVE); UROBILINOGEN URINE 0.2 E.U./dL (0.2-1.0)
[2018-10-22] MEDS ORDERED: DIPHENHYDRAMINE 50MG/ML VIAL IV NR (12:45)
[2018-10-22 12:59] LABS: *AMPHETAMINES SCREEN URINE NEGATIVE (NEGATIVE); *BARBITURATES SCREEN URINE NEGATIVE (NEGATIVE); *BENZODIAZEPINES SCREEN URINE PRESUMTIVE POSITIVE (NEGATIVE)
[2018-10-22 13:00] LABS: *COCAINE SCREEN URINE NEGATIVE (NEGATIVE); CANNABINOID URINE SCREEN NEGATIVE (NEGATIVE); METHADONE URINE SCREEN NEGATIVE (NEGATIVE); OPIATES URINE SCREEN NEGATIVE (NEGATIVE); PHENCYCLIDINE URINE SCREEN NEGATIVE (NEGATIVE)
[2018-10-22 14:00] VITALS: BP 155/85
== END 2018-10-22 14:30 | disposition home or self-care (01) ==
LOC: ER 09:38
DX: R56.9 Unspecified convulsions (principal); I25.2 Old myocardial infarction; Z86.73 Personal history of transient ischemic attack (TIA), and cerebral infarction without residual deficits; Z88.0 Allergy status to penicillin; Z88.8 Allergy status to other drugs, medicaments and biological substances; Z79.899 Other long term (current) drug therapy
CPT/HCPCS: 36415; 80053; 80305; 80320; 81003; 85025; 96365; 96375; 99283; J1200; J1953; G0480

== ENCOUNTER 2019-01-19 14:52 | Inpatient (IN) | payer MEDICARE, MEDICAID ==
[~2019-01-19] VITALS: Ht 172.7 cm; Wt 104.3 kg
[~2019-01-19 14:52] MED LIST changes: -BENA10TA10 PO; +BENA10TA12 PO
[2019-01-19] MEDS ORDERED: LORAZEPAM 2MG/ML CPJ ONE (14:59)
[2019-01-19] MEDS ORDERED: SODIUM CHLORIDE 0.9% 1,000 ML IV ONE (15:09)
[2019-01-19] MEDS ORDERED: LORAZEPAM 2MG/ML CPJ IV ONE (15:15)
[2019-01-19] MEDS ORDERED: LEVETIRACETAM 500MG PREMIX 100 ML IV ONE (15:15)
[2019-01-19 15:33] LABS: EOSINOPHILS % 6.9 % (0.0-5.0); HEMOGLOBIN. 12.2 g/dL (12.0-16.0); LYMPHOCYTES % 40.7 % (20.0-50.0); MEAN CORPUSCULAR HEMOGLOBIN 26.6 pg (28.0-32.0); MEAN CORPUSCULAR VOLUME 80.7 fL (81.0-99.0); MEAN PLATELET VOLUME 8.2 fl (7.4-10.4); MONOCYTES % 5.5 % (2.0-8.0); NEUTROPHILS % 45.9 % (40.0-76.0); PLATELET 195 x1000/uL (130-400); RED BLOOD CELL COUNT 4.58 mill/uL (4.2-5.4); RED CELL DISTRIBUTION WIDTH 15.5 % (11.6-14.6)
[2019-01-19 15:38] LABS: CHLORIDE 108 mEq/L (98-107)
[2019-01-19 15:42] LABS: ETHANOL BLOOD < 10 mg/dL
[2019-01-19 15:47] LABS: CARBAMAZEPINE 4.1 ug/mL (4-12)
[2019-01-19 15:50] LABS: PHENOBARBITAL < 2.1 ug/mL (15.0-40.0)
[2019-01-19 17:37] LABS: CLARITY URINE CLEAR (CLEAR); COLOR URINE YELLOW (YELLOW); KETONES URINE NEGATIVE (NEGATIVE); LEUKOCYTE ESTERASE URINE NEGATIVE (NEGATIVE); NITRITE URINE NEGATIVE (NEGATIVE); OCCULT BLOOD URINE NEGATIVE (NEGATIVE); PH URINE 5.5 (4.5-8.0); PROTEIN URINE NEGATIVE (NEGATIVE); SPECIFIC GRAVITY URINE 1.006 (1.005-1.030); UROBILINOGEN URINE 0.2 E.U./dL (0.2-1.0)
[2019-01-19 18:30] LABS: METHADONE URINE SCREEN NEGATIVE (NEGATIVE); OPIATES URINE SCREEN NEGATIVE (NEGATIVE)
[2019-01-19] MEDS ORDERED: GUAIFENESIN 200MG/10ML SUGAR FREE UDC PO PRN (18:30)
[2019-01-19] MEDS ORDERED: ACETAMINOPHEN 325MG TABLET PO PRN (18:30)
[2019-01-19] MEDS ORDERED: CLONIDINE 0.1MG TABLET PO PRN (18:30)
[2019-01-19] MEDS ORDERED: ENOXAPARIN 40MG/0.4ML SYR SUBCUT SCH (18:30)
[2019-01-19] MEDS ORDERED: LORAZEPAM 2MG/ML CPJ IV PRN (18:30)
[2019-01-19] MEDS ORDERED: ONDANSETRON HCL 4MG/2ML INJ IV PRN (18:30)
[2019-01-19 18:31] LABS: *AMPHETAMINES SCREEN URINE NEGATIVE (NEGATIVE); *BARBITURATES SCREEN URINE NEGATIVE (NEGATIVE); *BENZODIAZEPINES SCREEN URINE NEGATIVE (NEGATIVE); *COCAINE SCREEN URINE NEGATIVE (NEGATIVE); CANNABINOID URINE SCREEN NEGATIVE (NEGATIVE); PHENCYCLIDINE URINE SCREEN NEGATIVE (NEGATIVE)
[2019-01-19 21:00] VITALS: BP 112/73
[2019-01-19 21:30] VITALS: BP 142/73
[2019-01-19] MEDS ORDERED: albuterol * (22:46)
[2019-01-19] MEDS ORDERED: ventolin INH (22:47)
[2019-01-19] MEDS: LEVETIRACETAM 500MG/5ML CUP PO SCH (23:09)
[2019-01-19] MEDS: ENOXAPARIN 30MG/0.3ML SYR SUBCUT SCH (23:10)
[2019-01-20] VITALS: BP 120/73
[2019-01-20] MEDS ORDERED: DIPHENHYDRAMINE 25MG CAPSULE PO NR (02:00)
[2019-01-20] MEDS ORDERED: IBUPROFEN 200MG TABLET PO PRN (02:08)
[2019-01-20 04:00] VITALS: BP 125/76
[2019-01-20 08:00] VITALS: BP 151/53
[2019-01-20] MEDS: ENOXAPARIN 30MG/0.3ML SYR SUBCUT SCH (08:59)
[2019-01-20] MEDS: LEVETIRACETAM 500MG/5ML CUP PO SCH ×2 (08:59→20:03)
[2019-01-20 09:28] LABS: EOSINOPHILS % 7.7 % (0.0-5.0); HEMATOCRIT. 37.1 % (36.0-48.0); HEMOGLOBIN. 12.1 g/dL (12.0-16.0); LYMPHOCYTES % 32.6 % (20.0-50.0); MEAN CORPUSCULAR HEMOGLOBIN 26.6 pg (28.0-32.0); MEAN PLATELET VOLUME 8.3 fl (7.4-10.4); MONOCYTES % 5.5 % (2.0-8.0); NEUTROPHILS % 53.2 % (40.0-76.0); PLATELET 187 x1000/uL (130-400); RED BLOOD CELL COUNT 4.57 mill/uL (4.2-5.4); RED CELL DISTRIBUTION WIDTH 15.5 % (11.6-14.6)
[2019-01-20 09:33] LABS: CHLORIDE 109 mEq/L (98-107)
[2019-01-20 12:00] VITALS: BP 127/80
[2019-01-20] MEDS ORDERED: PHENYTOIN SODIUM EXTENDED 100MG CAPSULE PO SCH (12:30)
[2019-01-20] MEDS: PHENYTOIN SODIUM EXTENDED 100MG CAPSULE PO SCH ×2 (13:33→21:14)
[2019-01-20 16:00] VITALS: BP 136/85
[2019-01-20] MEDS: BACLOFEN 10MG TABLET PO SCH (16:47)
[2019-01-20 20:00] VITALS: BP 129/78
[2019-01-20] MEDS ORDERED: DIPHENHYDRAMINE 50MG/ML VIAL IV NR (20:00)
[2019-01-20] MEDS ORDERED: IBUPROFEN 400MG TABLET PO PRN (20:15)
[2019-01-20] MEDS: IPRATROPIUM/ALBUTEROL 0.5-3(2.5)MG/3ML NEB HHN SCH (20:53)
[2019-01-21] VITALS: BP 106/62
[2019-01-21] MEDS: IPRATROPIUM/ALBUTEROL 0.5-3(2.5)MG/3ML NEB HHN SCH ×7 (00:36→20:20)
[2019-01-21 04:00] VITALS: BP 120/68
[2019-01-21] MEDS: PHENYTOIN SODIUM EXTENDED 100MG CAPSULE PO SCH ×3 (06:35→20:57)
[2019-01-21 08:00] VITALS: BP 197/168
[2019-01-21] MEDS: ENOXAPARIN 40MG/0.4ML SYR SUBCUT SCH (09:31)
[2019-01-21] MEDS: BACLOFEN 10MG TABLET PO SCH ×2 (09:32→18:07)
[2019-01-21] MEDS: LEVETIRACETAM 500MG/5ML CUP PO SCH ×2 (09:32→20:58)
[2019-01-21 12:00] VITALS: BP 119/65
[2019-01-21 16:00] VITALS: BP 136/89
[2019-01-21 20:00] VITALS: BP 133/74
[2019-01-21] MEDS: MEMANTINE HCL 10MG TABLET PO SCH (20:57)
[2019-01-22] VITALS: BP 124/73
[2019-01-22] MEDS: IPRATROPIUM/ALBUTEROL 0.5-3(2.5)MG/3ML NEB HHN SCH ×3 (00:36→08:00)
[2019-01-22 04:00] VITALS: BP 127/85
[2019-01-22] MEDS: PHENYTOIN SODIUM EXTENDED 100MG CAPSULE PO SCH (06:56)
[2019-01-22 08:19] VITALS: BP 126/79
[2019-01-22] MEDS ORDERED: LEVE1000 MT (08:46)
[2019-01-22] MEDS ORDERED: ATOR10TA MT (08:46)
[2019-01-22] MEDS: MEMANTINE HCL 10MG TABLET PO SCH (09:00)
[2019-01-22] MEDS ORDERED: LORATADINE 10MG TABLET PO SCH (09:00)
[2019-01-22] MEDS ORDERED: ASPIRIN 81MG EC TABLET PO SCH (09:00)
[2019-01-22] MEDS ORDERED: GABAPENTIN 300MG CAPSULE PO SCH (09:00)
[2019-01-22] MEDS: LEVETIRACETAM 500MG/5ML CUP PO SCH (09:00)
[2019-01-22] MEDS ORDERED: MEMANTINE HCL 10MG TABLET PO SCH (09:00)
[2019-01-22] MEDS: BACLOFEN 10MG TABLET PO SCH (10:07)
[2019-01-22] MEDS: ENOXAPARIN 40MG/0.4ML SYR SUBCUT SCH (10:08)
[2019-01-22 10:55] VITALS: BP 126/79
[2019-01-22] MEDS ORDERED: ATORVASTATIN CALCIUM 10MG TABLET PO SCH (21:00)
== END 2019-01-22 12:26 | disposition home or self-care (01) | DRG 101 ==
LOC: ER 15:45 → 6WST 17:26 → ENRESERV 19:34
PROVIDERS: ADMIT Internal Medicine Geriatric Medicine; ATTEND Internal Medicine Geriatric Medicine
PROC: 4A00X4Z Measurement of Central Nervous Electrical Activity, External Approach (ICD-10-PCS; principal; 2019-01-22)
DX: G40.401 Other generalized epilepsy and epileptic syndromes, not intractable, with status epilepticus (principal); E83.51 Hypocalcemia; E66.9 Obesity, unspecified; L29.9 Pruritus, unspecified; G47.30 Sleep apnea, unspecified; J44.9 Chronic obstructive pulmonary disease, unspecified; W18.39XA Other fall on same level, initial encounter; Y93.89 Activity, other specified; Y92.512 Supermarket, store or market as the place of occurrence of the external cause; Y99.8 Other external cause status; I25.2 Old myocardial infarction; Z74.01 Bed confinement status; Z99.3 Dependence on wheelchair; Z88.0 Allergy status to penicillin; Z88.8 Allergy status to other drugs, medicaments and biological substances; Z79.82 Long term (current) use of aspirin; Z79.899 Other long term (current) drug therapy
CPT/HCPCS: 36415; 71045; 80156; 80165; 80184; 80185; 80305; 80320; 81003; 82542; 82962; 84484; 93005; 94640; 99291; J1200; J1650; J1953; J2060; J7030; J7620; Q0163; G0480

== ENCOUNTER 2020-05-23 13:19 | Inpatient (IN) | payer MEDICARE, OTHER ==
[~2020-05-23] VITALS: Ht 172.7 cm; Wt 102.1 kg
[~2020-05-23 13:19] MED LIST changes: +AMLO10TA80 PO; -AMLO2.5T45 MT; -ASPI-1393 PO; +ASPI-1497 PO; +ASPI-986 MT; +ATOR10TA MT; -B50 GT; -BACL-141 PO; -BENA10TA12 PO; -GABA-531 MT; +GABA-533 PO; +LEVE750T4 MT; -LORA10TA7 PO; -MEMA10TA19 PO; +MEMA10TA55 PO
[2020-05-23] MEDS ORDERED: LEVETIRACETAM 1000MG PREMIX 100 ML IV ONE (13:45)
[2020-05-23] MEDS ORDERED: SODIUM CHLORIDE 0.9% 1,000 ML IV ONE (13:45)
[2020-05-23 14:09] LABS: BASOPHILS % 1.1 % (0.0-2.0); EOSINOPHILS % 2.8 % (0.0-5.0); HEMATOCRIT. 38.1 % (36.0-48.0); HEMOGLOBIN. 12.4 g/dL (12.0-16.0); LYMPHOCYTES % 29.1 % (20.0-50.0); MEAN CORPUSCULAR VOLUME 79.7 fL (81.0-99.0); MEAN PLATELET VOLUME 9.1 fl (7.4-10.4); MONOCYTES % 4.1 % (2.0-8.0); NEUTROPHILS % 62.9 % (40.0-76.0); PLATELET 226 x1000/uL (130-400); RED BLOOD CELL COUNT 4.78 mill/uL (4.2-5.4); RED CELL DISTRIBUTION WIDTH 15.5 % (11.6-14.6)
[2020-05-23] MEDS ORDERED: LORAZEPAM 2MG/ML CPJ IV NR (14:30)
[2020-05-23 14:32] LABS: CLARITY URINE CLEAR (CLEAR); COLOR URINE YELLOW (YELLOW); KETONES URINE NEGATIVE (NEGATIVE); LEUKOCYTE ESTERASE URINE NEGATIVE (NEGATIVE); NITRITE URINE NEGATIVE (NEGATIVE); OCCULT BLOOD URINE NEGATIVE (NEGATIVE); PH URINE 5.5 (4.5-8.0); PROTEIN URINE TRACE (NEGATIVE); SPECIFIC GRAVITY URINE 1.017 (1.005-1.030); UROBILINOGEN URINE 0.2 E.U./dL (0.2-1.0)
[2020-05-23 14:41] LABS: CHLORIDE 108 mEq/L (98-107)
[2020-05-23 14:45] LABS: ETHANOL BLOOD < 10 mg/dL
[2020-05-23 14:47] LABS: METHADONE URINE SCREEN NEGATIVE (NEGATIVE); OPIATES URINE SCREEN NEGATIVE (NEGATIVE)
[2020-05-23 14:48] LABS: *AMPHETAMINES SCREEN URINE NEGATIVE (NEGATIVE); *BARBITURATES SCREEN URINE NEGATIVE (NEGATIVE); *BENZODIAZEPINES SCREEN URINE PRESUMTIVE POSITIVE (NEGATIVE); *COCAINE SCREEN URINE NEGATIVE (NEGATIVE); CANNABINOID URINE SCREEN NEGATIVE (NEGATIVE); PHENCYCLIDINE URINE SCREEN NEGATIVE (NEGATIVE)
[2020-05-23] MEDS ORDERED: ACETAMINOPHEN 325MG TABLET PO PRN (17:00)
[2020-05-23] MEDS ORDERED: CLONIDINE 0.1MG TABLET PO PRN (17:00)
[2020-05-23] MEDS ORDERED: MAGNESIUM/ALUMINUM HYDROXIDE/SIMETHICONE 30ML UDC PO PRN (17:00)
[2020-05-23] MEDS ORDERED: LORAZEPAM 2MG/ML CPJ IV PRN ×2 (17:00)
[2020-05-23] MEDS ORDERED: DIPHENHYDRAMINE 50MG/ML VIAL IV PRN (17:00)
[2020-05-23] MEDS ORDERED: DOCUSATE SODIUM 100MG CAPSULE PO PRN (17:00)
[2020-05-23] MEDS ORDERED: GUAIFENESIN 200MG/10ML SUGAR FREE UDC PO PRN (17:00)
[2020-05-23] MEDS ORDERED: ONDANSETRON HCL 4MG/2ML INJ IV PRN (17:00)
[2020-05-23] MEDS ORDERED: ALBUTEROL 6.7GM HFA INHALER ORI PRN (17:00)
[2020-05-23] MEDS: MORPHINE SULFATE 2 MG/ML CPJ (NOT FOR IM USE) IV PRN (17:54)
[2020-05-23] MEDS: SODIUM CHLORIDE 0.45% 1,000 ML IV SCH (17:54)
[2020-05-23] MEDS: ENOXAPARIN 30MG/0.3ML SYR SUBCUT SCH (17:54)
[2020-05-23] MEDS: HYDROCODONE/ACETAMINOPHEN 5/325MG TABLET PO PRN (17:54)
[2020-05-23] MEDS ORDERED: LEVETIRACETAM 500MG TABLET PO SCH (21:00)
[2020-05-23 21:40] VITALS: BP 107/72
[2020-05-23 22:08] VITALS: BP 107/72
[2020-05-23] MEDS ORDERED: MEMA10PO MC (22:28)
[2020-05-23] MEDS: SODIUM CHLORIDE 0.9% INJ 3ML FLUSH IVF SCH (23:08)
[2020-05-24] VITALS: BP 131/88
[2020-05-24 04:00] VITALS: BP 128/55
[2020-05-24] MEDS: SODIUM CHLORIDE 0.9% INJ 3ML FLUSH IVF SCH ×3 (06:53→20:59)
[2020-05-24] MEDS: ENOXAPARIN 30MG/0.3ML SYR SUBCUT SCH ×2 (06:53→17:11)
[2020-05-24 07:20] LABS: BASOPHILS % 0.9 % (0.0-2.0); EOSINOPHILS % 3.4 % (0.0-5.0); HEMATOCRIT. 35.8 % (36.0-48.0); HEMOGLOBIN. 11.8 g/dL (12.0-16.0); LYMPHOCYTES % 24.3 % (20.0-50.0); MEAN CORPUSCULAR VOLUME 78.9 fL (81.0-99.0); MEAN PLATELET VOLUME 9.3 fl (7.4-10.4); NEUTROPHILS % 66.4 % (40.0-76.0); PLATELET 180 x1000/uL (130-400); RED BLOOD CELL COUNT 4.54 mill/uL (4.2-5.4)
[2020-05-24 07:33] LABS: CHLORIDE 109 mEq/L (98-107)
[2020-05-24 08:00] VITALS: BP 129/86
[2020-05-24] MEDS: ASPIRIN 81MG EC TABLET PO SCH (09:02)
[2020-05-24] MEDS: LEVETIRACETAM 250MG TABLET PO SCH ×2 (09:03→20:59)
[2020-05-24] MEDS: MEMANTINE HCL 10MG TABLET PO SCH (09:03)
[2020-05-24] MEDS: AMLODIPINE 10MG TABLET PO SCH (09:03)
[2020-05-24] MEDS: GABAPENTIN 400MG CAPSULE PO SCH ×3 (09:03→17:09)
[2020-05-24] MEDS: MORPHINE SULFATE 2 MG/ML CPJ (NOT FOR IM USE) IV PRN (09:04)
[2020-05-24 12:00] VITALS: BP 115/85
[2020-05-24] MEDS: SODIUM CHLORIDE 0.45% 1,000 ML IV SCH (13:24)
[2020-05-24 16:00] VITALS: BP 124/73
[2020-05-24 20:00] VITALS: BP 146/91
[2020-05-24] MEDS ORDERED: ATORVASTATIN CALCIUM 10MG TABLET PO SCH (21:00)
[2020-05-24] MEDS: HYDROCODONE/ACETAMINOPHEN 5/325MG TABLET PO PRN (21:08)
[2020-05-25] VITALS: BP 141/71
[2020-05-25 04:00] VITALS: BP 138/78
[2020-05-25] MEDS: SODIUM CHLORIDE 0.9% INJ 3ML FLUSH IVF SCH (05:43)
[2020-05-25] MEDS: ENOXAPARIN 30MG/0.3ML SYR SUBCUT SCH (05:43)
[2020-05-25 07:09] LABS: BASOPHILS % 0.4 % (0.0-2.0); EOSINOPHILS % 4.6 % (0.0-5.0); HEMATOCRIT. 39.6 % (36.0-48.0); HEMOGLOBIN. 12.9 g/dL (12.0-16.0); LYMPHOCYTES % 30.9 % (20.0-50.0); MEAN CORPUSCULAR HEMOGLOBIN 25.9 pg (28.0-32.0); MEAN CORPUSCULAR VOLUME 79.6 fL (81.0-99.0); MEAN PLATELET VOLUME 9.5 fl (7.4-10.4); MONOCYTES % 5.4 % (2.0-8.0); NEUTROPHILS % 58.7 % (40.0-76.0); PLATELET 112 x1000/uL (130-400); RED BLOOD CELL COUNT 4.97 mill/uL (4.2-5.4); RED CELL DISTRIBUTION WIDTH 14.8 % (11.6-14.6)
[2020-05-25 07:39] LABS: CHLORIDE 107 mEq/L (98-107)
[2020-05-25] MEDS: GABAPENTIN 400MG CAPSULE PO SCH ×2 (09:03→13:31)
[2020-05-25] MEDS: MEMANTINE HCL 10MG TABLET PO SCH (09:03)
[2020-05-25] MEDS: AMLODIPINE 10MG TABLET PO SCH (09:03)
[2020-05-25] MEDS: LEVETIRACETAM 250MG TABLET PO SCH (09:03)
[2020-05-25] MEDS: ASPIRIN 81MG EC TABLET PO SCH (09:03)
[2020-05-25] MEDS ORDERED: POTASSIUM CHLORIDE 20MEQ TABLET SR PO SCH (13:00)
[2020-05-25 13:44] VITALS: BP 140/82
== END 2020-05-25 15:50 | disposition home or self-care (01) | DRG 101 ==
LOC: ER 13:28 → 8WST 15:56 → ENRESERV 19:53
PROVIDERS: ADMIT Internal Medicine; ATTEND Internal Medicine
DX: G40.909 Epilepsy, unspecified, not intractable, without status epilepticus (principal); R65.10 Systemic inflammatory response syndrome (SIRS) of non-infectious origin without acute organ dysfunction; I69.354 Hemiplegia and hemiparesis following cerebral infarction affecting left non-dominant side; M25.512 Pain in left shoulder; I10 Essential (primary) hypertension; E87.6 Hypokalemia; E66.9 Obesity, unspecified; Z68.34 Body mass index [BMI] 34.0-34.9, adult; I25.2 Old myocardial infarction; Z99.3 Dependence on wheelchair; Z88.0 Allergy status to penicillin; Z88.8 Allergy status to other drugs, medicaments and biological substances
CPT/HCPCS: 36415; 71045; 73030; 80048; 80053; 80305; 80320; 81003; 82542; 82962; 84484; 85025; 93005; 99291; J1650; J1953; J2060; J2270; J2405; J7030; G0480

== ENCOUNTER 2023-09-03 11:49 | Emergency (ER) | payer MEDICARE, OTHER ==
[~2023-09-03] VITALS: Ht 167.6 cm; Wt 96.0 kg
[~2023-09-03 11:49] MED LIST changes: -GABA-533 PO; +GABA-534 PO; +MEMA10PO MC; -MEMA10TA55 PO
[2023-09-03 11:54] VITALS: O2SAT 95
[2023-09-03] MEDS: KETOROLAC 30MG/ML VIAL IV STA (12:41)
[2023-09-03] MEDS: ONDANSETRON HCL 4MG/2ML INJ IV STA (12:41)
[2023-09-03] MEDS: MORPHINE SULFATE 4 MG/ML INJ (FOR IV/IM USE) IV STA (12:41)
[2023-09-03 15:40] LABS: EOSINOPHILS % 3.4 % (0.0-5.0); HEMATOCRIT. 38.7 % (36.0-48.0); HEMOGLOBIN. 12.4 g/dL (12.0-16.0); MEAN CORPUSCULAR HGB CONC 32.1 g/dL (31.0-37.0); MEAN CORPUSCULAR VOLUME 80.9 fL (81.0-99.0); MEAN PLATELET VOLUME 8.6 fl (7.4-10.4); MONOCYTES % 6.1 % (2.0-8.0); NEUTROPHILS % 55.5 % (40.0-76.0); PLATELET 238 x1000/uL (130-400); RED BLOOD CELL COUNT 4.79 mill/uL (4.2-5.4); RED CELL DISTRIBUTION WIDTH 15.4 % (11.6-14.6); WHITE BLOOD COUNT 9.7 x1000/uL (4.5-11.0)
[2023-09-03 15:46] LABS: CHLORIDE 110 mEq/L (98-107); POTASSIUM 3.8 mEq/L (3.5-5.1); SODIUM 143 mEq/L (136-145)
[2023-09-03 15:47] LABS: CALCIUM 9.9 mg/dL (8.7-10.4); CARBON DIOXIDE 25 mEq/L (21-32)
[2023-09-03 15:51] LABS: PROTHROMBIN TIME 11.4 sec (9.6-11.0)
[2023-09-03 15:52] LABS: CREATININE 0.9 mg/dL (0.6-1.0); GLUCOSE 104 mg/dL (70-105); UREA NITROGEN BLOOD 10 mg/dL (9-23)
[2023-09-03 18:28] VITALS: BP 136/71; PULSE 87; RESP 21; TEMP 98
== END 2023-09-03 18:30 | disposition home or self-care (01) ==
LOC: ER 11:49
DX: R51.9 Headache, unspecified (principal); R56.9 Unspecified convulsions; I10 Essential (primary) hypertension; I25.2 Old myocardial infarction; Z86.73 Personal history of transient ischemic attack (TIA), and cerebral infarction without residual deficits; Z79.899 Other long term (current) drug therapy
CPT/HCPCS: 36415; 80048; 85025; 99285